=== PATIENT | female | born 1955 | race Caucasian/White ===

== ENCOUNTER 2023-08-06 11:11 | Emergency (ER) | payer OTHER, MEDICARE ==
[~2023-08-06] VITALS: Ht 167.6 cm; Wt 81.6 kg
[2023-08-06 12:30] LABS: BASOPHILS % (AUTO) 0.6 % (0-1); EOSINOPHILS # (AUTO) 0.1 X10'3 (0-0.9); EOSINOPHILS % (AUTO) 1.6 % (0-6); HEMATOCRIT 38.8 % (35.0-45.0); HEMOGLOBIN 12.6 g/dl (12.0-16.0); LYMPHOCYTES # (AUTO) 1.1 X10'3 (1.1-4.8); LYMPHOCYTES % (AUTO) 15.6 % (21-51); MEAN CORPUSCULAR HEMOGLOBIN 28.1 PG (27.0-31.0); MEAN CORPUSCULAR HGB CONC 32.4 g/dL (33.0-36.5); MEAN CORPUSCULAR VOLUME 86.8 FL (78-98); MEAN PLATELET VOLUME 7.3 FL (7.4-10.4); MONOCYTES # (AUTO) 0.4 X10'3 (0-0.9); MONOCYTES % (AUTO) 5.6 % (2-12); NEUTROPHILS # (AUTO) 5.5 X10'3 (1.8-7.7); NEUTROPHILS % (AUTO) 76.6 % (42-75); PLATELET COUNT 181 X10'3 (140-440); RED BLOOD COUNT 4.47 X10'6 (4.20-5.60); RED CELL DISTRIBUTION WIDTH 14.4 % (11.5-14.5); WHITE BLOOD COUNT 7.1 X10'3 (4.5-11.0)
[2023-08-06 12:52] LABS: ALANINE AMINOTRANSFERASE 23 U/L (12-78); ALBUMIN/GLOBULIN RATIO 0.9 (1.1-1.5); ALKALINE PHOSPHATASE 65 IU/L (46-116); ANION GAP 2 (8-16); ASPARTATE AMINO TRANSFERASE 13 U/L (10-37); BILIRUBIN,TOTAL 0.3 MG/DL (0.1-1.0); BLOOD UREA NITROGEN 16 MG/DL (7-18); BUN/CREATININE RATIO 23.5 (10.0-20.0); CALCIUM 8.2 MG/DL (8.5-10.1); CHLORIDE 107 MMOL/L (99-107); CREATININE 0.68 MG/DL (0.40-0.90); GLUCOSE 133 MG/DL (70-104); POTASSIUM 4.1 MMOL/L (3.5-5.1); SODIUM 141 MMOL/L (135-145); TOTAL CARBON DIOXIDE 31.7 MMOL/L (24-32); TOTAL PROTEIN 6.5 G/DL (6.4-8.2); eCRCL 74 ML/MIN; eGFR 86 ML/MIN
[2023-08-06 12:55] LABS: APTT 27 SECONDS (22-32); PROTHROMBIN TIME 9.8 SECONDS (9.0-12.0)
[2023-08-06 12:58] LABS: INR 0.9 INR
[2023-08-06 13:09] LABS: PRO BRAIN NATRIURETIC PEPTIDE 151 PG/ML (0-125)
[2023-08-06] MEDS ORDERED: HYDROcodone/acetaminophen 10/325mg tab PO ONE (16:15)
[2023-08-06] MEDS ORDERED: ondansetron 4mg rapidly disintigrating tab PO ONE (16:15)
[2023-08-06] MEDS: ondansetron 4mg rapidly disintigrating tab PO ONE (16:51)
[2023-08-06] MEDS: HYDROcodone/acetaminophen 10/325mg tab PO ONE (16:51)
[2023-08-06 17:35] VITALS: BP 99/54; PULSE 106; RESP 17; TEMP 99; O2SAT 94
== END 2023-08-06 17:42 | disposition home or self-care (01) ==
LOC: ER 11:12
DX: R07.89 Other chest pain (principal); J44.9 Chronic obstructive pulmonary disease, unspecified; R10.13 Epigastric pain; F17.200 Nicotine dependence, unspecified, uncomplicated; Z88.8 Allergy status to other drugs, medicaments and biological substances
CPT/HCPCS: 36415; 71045; 74176; 76700; 80053; 83880; 84484; 85025; 85610; 85730; 93005; 99285; A4615